=== PATIENT | male | born 1990 | race Caucasian/White ===

== ENCOUNTER 2016-08-24 22:46 | Emergency (ER) | payer OTHER ==
[~2016-08-24] VITALS: Ht 160 cm; Wt 54.5 kg
[~2016-08-24 22:46] MED LIST: CLOT21CR7 VAGINAL
[2016-08-24 22:54] VITALS: BP 146/84; PULSE 61; RESP 18; O2SAT 95
--- NOTE | 2016-08-24 23:37 | ED.REPORT ---
HPI-General Illness Date of Service August 24, 2016 ED Provider: Jose Manuel Junior MD Patient is a 26 year old male who presents to the ED via EMS initially complaining of a "pressure" in his right hip. Currently he is complaining of nausea and vomiting. He denies abdominal pain, chest pain or shortness of breath. Prior to arrival to the ED, the patient reported that he smoked "$30 worth of meth" than drank two energy drinks and started having the pressure in his hip. The patient states that he does not regularly use meth. Nursing Notes Stated Complaint: NAUSEA/VOMITING Chief Complaint: Male Abdominal Pain Nursing Notes Reviewed: Yes Allergies: Coded Allergies: No Known Allergies (Verified Allergy, Unknown, 08/24/16) Scheduled Clotrimazole 2% (Gyne-Lotrimin 3 2%) 21 Gm Cream.appl 21 GM VAGINAL BID General Time Seen by MD: 23:34 Chief Complaint Other (right hip pressure) Hx Obtained From: Patient Arrived By: Ambulance Sudden in Onset?: Yes Onset Occurred: Just prior to arrival Context of Onset: Amphetamine use (meth) Symptom Duration: Since onset Location: : Thigh right Quality: Pressure Severity: Current: No pain currently Associated with: Reports: Nausea, Vomiting Recent Healthcare: No recent doctor visit, No recent hospitalization Similar Sx Previous: No Past Medical History Past Medical History Alcohol Syndrome ADHD anxiety depression Past Surgical History none reported Family History noncontributory Smoking History Current Every Day Smoker Social History Alcohol Use: In recovery Drug Use: Meth Other Social History: From out of town Ambulatory Status Independent Review of Systems right hip "pressure" Full Review of Systems Respiratory: Denies: Non-productive cough, Shortness of breath Cardiovascular: Denies: Chest pain GI: Reports: Nausea, Vomiting, Denies: Abdominal pain Musculoskeletal: Denies: Extremity pain Complete sys rev & neg: except as marked. Physical Exam Vital Signs Vital Signs Date Time Temp Pulse Resp B/P Pulse Ox O2 Delivery O2 Flow Rate FiO2 08/24/16 23:44 36.8 61 18 135/74 100 Room Air 08/24/16 22:54 35.8 61 18 146/84 95 Room Air Initial VS: Reviewed General/Constitutional: Awake, Alert, Cooperative Behavior: Positive: Appears intoxicated tremulous Head / Eyes: Atraumatic, Normocephalic, PERRL, EOMI Respiratory / Chest: Atraumatic, Breath sounds NL, Breath sounds = bilat, No respiratory distress Cardiovascular: Heart rate NL, Regular rhythm, Heart sounds NL, No gallop, No murmurs, No rubs Abdomen: Atraumatic, Soft, Non-tender, BS normoactive Skin: Atraumatic, Color NL, No rash, Warm, Dry Neurologic: Oriented X3, Speech NL, No motor deficits, No sensory deficits Psychiatric: Affect NL, Mood NL Re-Eval/Medical Decision Time of Eval: 01:13 Patient Status: Condition improved Re-Evaluation/Progress Note: Patient reports he is feeling better and would like to be discharged. Discussed plan for discharge with the patient. The patient understands and agrees to the plan for discharge. All questions were addressed. Counseled Regarding: Diagnosis, Lab results, Need for follow-up, When/why to return to ED Discharge & Departure Primary Impression: Nausea and vomiting Vomiting type: unspecified Vomiting Intractability: non-intractable Qualified Code: R11.2 - Nausea with vomiting, unspecified Additional Impression: Substance abuse Disposition: Home Discharge Condition All VS Reviewed: Yes Condition: Stable Additional Instructions: Do not use methamphetamine. Combining methamphetamine with energy drinks is not a good idea. Follow-up with primary care as needed, consider attending [facility] or [facility] recovery for assistance with drug abuse Referrals: Jeremy Carrillo MD (PCP) Scribe Attestation Portions of this note were transcribed by Altagracia Short. I, Dr. Junior personally performed the history, physical exam and medical decision-making; I reviewed and confirmed the accuracy of the information in the transcribed note. Signed by: Franky Triana, 08/24/16 and 2244 copies to: Jeremy Carrillo MD, Donald L MD August 24, 2016 23:37 [place] Short August 24, 2016 23:47
[2016-08-24 23:44] VITALS: BP 135/74; PULSE 61; RESP 18; O2SAT 100
[2016-08-25] MEDS ORDERED: Promethazine 50 mg/mL Inj IM ONE
== END 2016-08-25 01:28 | disposition home or self-care (01) ==
LOC: SED 22:46 → EDBD 22:46 → SED 08-25 01:28
DX: R11.2 Nausea with vomiting, unspecified (principal); F15.10 Other stimulant abuse, uncomplicated; M25.551 Pain in right hip; F17.200 Nicotine dependence, unspecified, uncomplicated

== ENCOUNTER 2016-10-31 17:55 | Emergency (ER) | payer OTHER ==
[~2016-10-31] VITALS: Ht 160 cm; Wt 56.0 kg
== END 2016-10-31 18:50 | disposition left against medical advice (07) ==
LOC: SED 17:55
DX: F22 Delusional disorders (principal); Z53.21 Procedure and treatment not carried out due to patient leaving prior to being seen by health care provider